=== PATIENT | female | born 1980 | race Caucasian/White ===

== ENCOUNTER 2016-05-19 03:48 | Emergency (ER) | payer SELFPAY ==
[~2016-05-19] VITALS: Ht 170.2 cm; Wt 57.0 kg
[2016-05-19 03:54] VITALS: BP 134/100; PULSE 86; RESP 18; TEMP 98.3; O2SAT 95
[2016-05-19] MEDS ORDERED: OXYC1TAB63 PO (04:00)
[2016-05-19] MEDS ORDERED: CLON2TAB PO (04:08)
[2016-05-19] MEDS ORDERED: OXYC-395 PO (04:08)
[2016-05-19] MEDS ORDERED: AMOX500C PO (04:08)
[2016-05-19] MEDS ORDERED: NALOXONE HCL 0.4 MG/ML AMP IV PUSH ONE (04:30)
[2016-05-19 04:43] VITALS: RESP 18; O2SAT 95
[2016-05-19] MEDS: SODIUM CHLORIDE 0.9% FLUSH 5 ML FLUSH IVF PRN ×2 (04:43→06:01)
--- NOTE | 2016-05-19 04:43 | PD ---
HPI Chief Complaint: Alcohol/Drug Intoxication Time Seen by Provider: 04:14 Travel History International Travel<30 days: No Contact w/Intl Traveler<30days: No Traveled to known affect area: No History of Present Illness HPI 36-year-old female brought in by ambulance after being found intoxicated and altered on a street corner. Patient was complaining to EMS about having generalized weakness, however she is several different stories and was not consistent with her complaints. She admitted to snorting and drinking something tonight, however she does not know what she had taken. [facility]A has her prescription bottles which show oxycodone that is empty that was filled on as well as a prescription in for Klonopin and amoxicillin. The patient is from [place] and has never been to our facility before. She is uncooperative with history and appears intoxicated. PFSH Past Medical History Medical History: Unable to Obtain Diminished Hearing: No ?: Unknown Past Surgical History Surgical History: Unable to Obtain Social History Alcohol Use: Yes Tobacco Use: No Substance Use: Yes (cocaine) Allergies-Medications (Allergen,Severity, Reaction): Coded Allergies: No Known Allergies (Unverified , 05/19/16) Reported Meds & Prescriptions Reported Meds & Active Scripts Active Reported Clonazepam 2 Mg Tab 1 Mg PO QID Amoxicillin 500 Mg Cap 500 Mg PO TID Oxycodone (Oxycodone HCl) 10 Mg Tab 10 Mg PO Q6H PRN Review of Systems ROS Limitations: Uncooperative Physical Exam Narrative GENERAL: Well-developed, well-nourished, drowsy, appears intoxicated, easily arousable. SKIN: Warm and dry. No rash. HEAD: Atraumatic. Normocephalic. EYES: Pupils equal and round. No scleral icterus. No injection or drainage. ENT: No nasal bleeding or discharge. Mucous membranes pink and dry. NECK: Trachea midline. No JVD. No nuchal rigidity. CARDIOVASCULAR: Regular rate and rhythm. RESPIRATORY: No accessory muscle use. Clear to auscultation. Breath sounds equal bilaterally. GASTROINTESTINAL: Abdomen soft, non-tender, nondistended. MUSCULOSKELETAL: No obvious deformities. No clubbing. No cyanosis. No edema. NEUROLOGICAL: Drowsy, easily arousable, appears intoxicated. No obvious cranial nerve deficits. Motor grossly within normal limits. Normal speech. Data Data Last Documented VS Vital Signs Date Time Temp Pulse Resp B/P Pulse Ox O2 Delivery O2 Flow Rate FiO2 05/19/16 04:47 86 18 141/75 94 Room Air 05/19/16 03:54 98.3 Orders Complete Blood Count With Diff (05/19/16 04:14) Comprehensive Metabolic Panel (05/19/16 04:14) Urinalysis - C+S If Indicated (05/19/16 04:14) Iv Access Insert/Monitor (05/19/16 04:14) Ecg Monitoring (05/19/16 04:14) Oximetry (05/19/16 04:14) Sodium Chloride 0.9% Flush (Ns Flush) (05/19/16 04:15) Ct Brain W/O Iv Contrast(Rout) (05/19/16 ) Beta Hcg (Quant/Titer) (05/19/16 04:14) Drug Screen, Random Urine (05/19/16 04:14) Alcohol (Ethanol) (05/19/16 04:14) Salicylates (Aspirin) (05/19/16 04:14) Tylenol (Acetaminophen) (05/19/16 04:14) Naloxone Inj (Narcan Inj) (05/19/16 04:30) Ammonia (05/19/16 04:34) Potassium Chloride (Kcl) (05/19/16 05:45) Tylenol (Acetaminophen) (05/19/16 05:45) Prothrombin Time / Inr (Pt) (05/19/16 05:45) Act Partial Throm Time (Ptt) (05/19/16 05:45) Labs Laboratory Tests Test 05/19/16 05/19/16 05/19/16 04:00 04:30 04:40 White Blood Count 6.6 TH/MM3 Red Blood Count 3.94 MIL/MM3 Hemoglobin 13.1 GM/DL Hematocrit 38.7 % Mean Corpuscular Volume 98.1 FL Mean Corpuscular Hemoglobin 33.2 PG Mean Corpuscular Hemoglobin 33.8 % Concent Red Cell Distribution Width 16.4 % Platelet Count 309 TH/MM3 Mean Platelet Volume 7.4 FL Neutrophils (%) (Auto) 57.2 % Lymphocytes (%) (Auto) 28.6 % Monocytes (%) (Auto) 11.2 % Eosinophils (%) (Auto) 2.4 % Basophils (%) (Auto) 0.6 % Neutrophils # (Auto) 3.8 TH/MM3 Lymphocytes # (Auto) 1.9 TH/MM3 Monocytes # (Auto) 0.7 TH/MM3 Eosinophils # (Auto) 0.2 TH/MM3 Basophils # (Auto) 0.0 TH/MM3 CBC Comment DIFF FINAL Differential Comment Prothrombin Time 13.4 SEC Prothromb Time International 1.2 RATIO Ratio Activated Partial 23.8 SEC Thromboplast Time Sodium Level 145 MEQ/L Potassium Level 2.6 MEQ/L Chloride Level 108 MEQ/L Carbon Dioxide Level 24.1 MEQ/L Anion Gap 13 MEQ/L Blood Urea Nitrogen 4 MG/DL Creatinine 0.83 MG/DL Estimat Glomerular Filtration 77 ML/MIN Rate Random Glucose 96 MG/DL Calcium Level 9.1 MG/DL Total Bilirubin 0.7 MG/DL Aspartate Amino Transf 20 U/L (AST/SGOT) Alanine Aminotransferase 17 U/L (ALT/SGPT) Alkaline Phosphatase 64 U/L Total Protein 7.3 GM/DL Albumin 3.7 GM/DL Human Chorionic Gonadotropin, LESS THAN 1 Quant MIU/ML Salicylates Level LESS THAN 1.7 MG/DL Acetaminophen Level 15.6 MCG/ML Ethyl Alcohol Level LESS THAN 3 MG/DL Urine Color YELLOW Urine Turbidity CLEAR Urine pH 6.5 Urine Specific [place] 1.014 Urine Protein NEG mg/dL Urine Glucose (UA) NEG mg/dL Urine Ketones NEG mg/dL Urine Occult Blood NEG Urine Nitrite NEG Urine Bilirubin NEG Urine Urobilinogen LESS THAN 2.0 MG/DL Urine Leukocyte Esterase TRACE Urine RBC LESS THAN 1 /hpf Urine WBC 3 /hpf Urine Squamous Epithelial <1 /hpf Cells Urine Transitional Epithelial 1 /hpf Cells Urine Hyaline Casts 1 /lpf Urine Mucus FEW /lpf Microscopic Urinalysis Comment CATH-CULT NOT IND Urine Opiates Screen NEG Urine Barbiturates Screen NEG Urine Amphetamines Screen NEG Urine Benzodiazepines Screen NEG Urine Cocaine Screen POS Urine Cannabinoids Screen NEG Ammonia 20 MCMOL/L MDM Medical Decision Making Medical Screen Exam Complete: Yes Emergency Medical Condition: Yes Differential Diagnosis Alcohol intoxication, drug intoxication, polysubstance abuse, intracranial abnormality, metabolic abnormality Narrative Course The patient's pupils are pinpoint and she has depressed mental status. She was given 0.4 mg of IV Narcan without improvement in mental status. Initial vital signs show heart rate 86, blood pressure 134/100, pulse ox 95% on room air, oral temp of 98.3F. CBC is unremarkable. CMP is remarkable for potassium 2.6, otherwise unremarkable. Ammonia level is 20. Beta hCG is negative. Alcohol and salicylate levels are negative. Coags are within normal limits. Tylenol level is 21.9. Repeat Tylenol level 2 hours after the first is 15. The patient admits to taking some Tylenol PM. She denies toxic Tylenol ingestion. She is denying suicidal or homicidal ideation. Urine drug screen is positive for cocaine. UA is not suggestive of UTI. CT head: CONCLUSION: No acute findings. Patient's potassium was replaced orally. She was made aware of all findings. She states she would like to be discharged. She is stable for discharge with outpatient follow-up with a primary care physician this week. Diagnosis Primary Impression: Polysubstance abuse Additional Impression: Hypokalemia Referrals: Primary Care Physician 3 days Additional Instructions: Follow-up with a primary care physician this week. Return to the emergency department for worsening symptoms or any other concerns. Disposition: 01 DISCHARGE HOME Condition: Stable Franky Santa MD May 19, 2016 04:43
[2016-05-19 04:47] VITALS: BP 141/75; PULSE 86; RESP 18; O2SAT 94
[2016-05-19 04:49] LABS: AUTOMATED NEUTROPHIL # 3.8 TH/MM3 (1.8-7.7); BASOPHIL % 0.6 % (0.0-2.0); EOSINOPHIL # 0.2 TH/MM3 (0-0.4); EOSINOPHIL % 2.4 % (0.0-4.0); HEMATOCRIT 38.7 % (35.0-46.0); HEMO FLAGS DIFF FINAL; LYMPH % 28.6 % (9.0-44.0); LYMPHOCYTE # 1.9 TH/MM3 (1.0-4.8); MEAN CELL VOLUME 98.1 FL (80.0-100.0); MEAN CORPUSCULAR HEMOGLOBIN 33.2 PG (27.0-34.0); MEAN CORPUSCULAR HGB CONC 33.8 % (32.0-36.0); MONO % 11.2 % (0.0-8.0); NEUT % 57.2 % (16.0-70.0); PLATELET COUNT 309 TH/MM3 (150-450); RED BLOOD COUNT 3.94 MIL/MM3 (4.00-5.30); RED CELL DISTRIBUTION WIDTH 16.4 % (11.6-17.2); WHITE BLOOD COUNT 6.6 TH/MM3 (4.0-11.0)
[2016-05-19 04:51] LABS: BLOOD, URINE NEG (NEG); COMMENT (UR) CATH-CULT NOT IND; CULTURE IF INDICATED CATH CULTURE NOT IND; GLUCOSE,URINE NEG (NEG); HYALINE CAST, URINE 1 /lpf (RARE); KETONE, URINE NEG (NEG); MUCUS URINE FEW /lpf (OCC); NITRITE,URINE NEG (NEG); PH, URINE 6.5 (5.0-8.5); SQUAMOUS EPITHELIAL CELL URINE <1 /hpf (0-5); TRANSITIONAL EPI CELLS, URINE 1 /hpf; URINE COLOR YELLOW (YELLW/STRAW)
[2016-05-19 04:56] LABS: AMPHETAMINE, URINE NEG (NEG); BARBITURATES, URINE NEG (NEG); COCAINE, URINE POS (NEG)
[2016-05-19 05:37] LABS: ACETAMINOPHEN 21.9 MCG/ML (10.0-30.0); ALKALINE PHOSPHATASE 64 U/L (45-117); ALT (GPT) 17 U/L (10-53); ANION GAP 13 MEQ/L (5-15); AST (GOT) 20 U/L (15-37); BETA HCG QUANT LESS THAN 1 MIU/ML (0-5); BICARBONATE 24.1 MEQ/L (21.0-32.0); BLOOD UREA NITROGEN 4 MG/DL (7-18); CHLORIDE 108 MEQ/L (98-107); GLOMERULAR FILTRATION RATE 77 ML/MIN (>89); SODIUM (NA) 145 MEQ/L (136-145); TOTAL BILIRUBIN ADULT 0.7 MG/DL (0.2-1.0)
[2016-05-19 05:44] LABS: POTASSIUM 2.6 MEQ/L (3.5-5.1)
[2016-05-19] MEDS ORDERED: POTASSIUM CHLORIDE 20 MEQ CONTROLLED RELEASE TAB PO ONE (05:45)
[2016-05-19 06:16] LABS: APTT (PATIENT) 23.8 SEC (24.3-30.1); INTERNATIONAL NORMALIZED RATIO 1.2 RATIO; PROTHROMBIN TIME - PATIENT 13.4 SEC (9.8-11.6)
--- NOTE | 2016-05-19 06:44 | RADRPT ---
EXAM DATE/TIME: 05/19/2016 06:07 [facility] COMPARISON: No previous studies available for comparison. INDICATIONS : Altered mental status. RADIATION DOSE: 56.35 CTDIvol (mGy) MEDICAL HISTORY : None SURGICAL HISTORY : None. ENCOUNTER: Initial ACUITY: 1 day PAIN SCALE: Non-responsive LOCATION: cranial TECHNIQUE: Multiple contiguous axial images were obtained of the head. Using automated exposure control and adj ustment of the mA and/or kV according to patient size, radiation dose was kept as low as reasonably a chievable to obtain optimal diagnostic quality images. FINDINGS: There is mild motion degradation of the images despite performing 2 acquisitions. CEREBRUM: The ventricles are normal for age. No evidence of midline shift, mass lesion, hemorrhage or acute in farction. No extra-axial fluid collections are seen. POSTERIOR FOSSA: The cerebellum and brainstem are intact. The 4th ventricle is midline. The cerebellopontine angle i s unremarkable. EXTRACRANIAL: The visualized portion of the orbits is intact. SKULL: The calvaria is intact. No evidence of skull fracture. CONCLUSION: No acute findings. Wallace Galvez MD on May 19, 2016 at 6:41 Board Certified Radiologist. This report was verified electronically.
[2016-05-19 07:05] VITALS: BP 150/88; PULSE 69; RESP 18; O2SAT 98
[2016-05-19 09:20] VITALS: BP 143/96; PULSE 68; RESP 16; O2SAT 96
== END 2016-05-19 10:52 | disposition home or self-care (01) ==
LOC: NEPE 03:48
DX: F19.129 Other psychoactive substance abuse with intoxication, unspecified (principal); E87.6 Hypokalemia; R53.1 Weakness; F14.129 Cocaine abuse with intoxication, unspecified; R41.82 Altered mental status, unspecified
CPT/HCPCS: 70450; 80053; 80307; 81001; 82140; 84702; 85025; 85610; 85730; 96374; 99285; J2310